=== PATIENT | female | born 1985 | race Caucasian/White ===

== ENCOUNTER → 2023-12-11 | Outpatient (CLI) | payer OTHER ==
--- NOTE | 2023-12-11 17:10 | CT ---
EXAMINATION TYPE: CT abdomen pelvis w con CT DLP: 1659 mGycm, Automated exposure control for dose reduction was used. DATE OF EXAM: 12/11/2023 4:13 PM COMPARISON: None CLINICAL INDICATION:Female, 38 years old with history of R31.1 MICROHEMATURIA; MICROHEMATURIA TECHNIQUE: Standard CT of the abdomen and pelvis following the administration of 100 cc of Isovue 3 00 IV contrast material and oral contrast. Coronal and sagittal reformats were performed. FINDINGS: LOWER CHEST: Linear scarring and/or atelectasis within the right middle lobe and left lower lobe. Tra ce bilateral pleural effusions. ABDOMEN LIVER: Diffusely hypoattenuating parenchyma. GALLBLADDER AND BILE DUCTS: Unremarkable. PANCREAS: Unremarkable. SPLEEN: Unremarkable. ADRENAL GLANDS: Unremarkable. KIDNEYS AND URETERS: The kidneys enhance symmetrically. 1.1 x 0.5 cm calculus within the left renal p zina (series 3, image 33). No overt hydronephrosis. There is mild prominence of the left renal pelvi s with enhancement of the wall. Contrast is demonstrated within both collecting systems extending int o the proximal ureters. No hydroureter. Additional nonobstructive calculus within the lower pole of t he right kidney measuring up to 8 mm. No perinephric fat stranding identified. PELVIS BLADDER: Incompletely distended but grossly unremarkable. REPRODUCTIVE: Unremarkable. ABDOMEN & PELVIS STOMACH AND BOWEL: Stomach and duodenum are unremarkable. No focal bowel wall thickening or stranding inflammatory changes. The appendix is not identified. No inflammatory changes within the right lower quadrant. Enteric contrast reaches the hepatic flexure. No evidence of bowel obstruction. PERITONEUM: No evidence of pneumoperitoneum or free fluid. VASCULATURE: No evidence of aortic aneurysm. MUSCULOSKELETAL: No acute osseous abnormalities LYMPH NODES: No gross evidence for lymphadenopathy. SOFT TISSUE/ABDOMINAL WALL: Unremarkable IMPRESSION: 1. Left renal 1.1 x 0.9 cm calculus within the prominent renal pelvis with wall enhancement. This is likely related to chronic inflammation from the calculus. Additional nonobstructive right renal calc ulus. Consider urology consult. 2. Hepatic steatosis. 3. Trace bilateral pleural effusions.
== END | disposition home or self-care (01) ==
LOC: RADCTMAIN 14:14
PROVIDERS: ATTEND Family Medicine
DX: N20.0 Calculus of kidney (principal); K76.0 Fatty (change of) liver, not elsewhere classified; J90 Pleural effusion, not elsewhere classified; R31.9 Hematuria, unspecified
CPT/HCPCS: 74177; Q9967

== ENCOUNTER → 2024-04-21 | Outpatient (CLI) | payer OTHER ==
--- NOTE | 2024-04-23 22:41 | XR ---
EXAMINATION TYPE: XR KUB DATE OF EXAM: 04/21/2024 3:59 PM COMPARISON: 01/10/2024 CLINICAL INDICATION: Male, 39 years old with history of N20.0 CALCULUS OF KIDNEY, TECHNIQUE: XR KUB view(s) obtained. FINDINGS: There is a normal bowel gas pattern. Psoas margins are normal. No organomegaly. There is a 0.6 cm calcification along the posterior mid to lower right renal cortex. There may be a 0.5 cm calcification within the mid left ureter at the level of the L3 transverse pro cess. IMPRESSION: 1. Suspected right renal calcification. 2. Possible mid left ureteral stone [facility], , 04/23/2024 10:39 PM
--- NOTE | 2024-04-23 22:42 | US ---
EXAMINATION TYPE: US kidneys/renal and bladder DATE OF EXAM: 04/21/2024 COMPARISON: CT & XR 2023 CLINICAL INDICATION: Male, 39 years old with history of N20.0 CALCULUS OF KIDNEY; History of kidney s tones, patient had surgery to remove stones TECHNIQUE: Grayscale imaging of the bilateral kidneys and urinary bladder: FINDINGS: EXAM MEASUREMENTS: Right Kidney: 9.5 x 4.6 x 5.0 cm Left Kidney: 10.8 x 5.0 x 4.8 cm Right Kidney: wnl Left Kidney: mild hydronephrosis, 0.9cm stone inferior pole Bladder: wnl Bilateral Jets seen: yes IMPRESSION: 1. Mild left hydronephrosis. 2. Nonobstructing renal stone inferior pole left kidney [facility], , 04/23/2024 10:40 PM
== END | disposition home or self-care (01) ==
LOC: EDSEX → RADUSWWP 15:05
PROVIDERS: ATTEND Urology
DX: N13.2 Hydronephrosis with renal and ureteral calculous obstruction (principal); Z87.442 Personal history of urinary calculi
CPT/HCPCS: 74018; 76770

== ENCOUNTER 2024-04-28 09:02 | Day surgery (SDC) | payer OTHER ==
--- NOTE | 2024-04-27 09:50 | P.GSHP ---
History of Present Illness H&P Date: 04/27/24 Josue was found to have microhematuria, and a CT scan showed a 5 x 11 mm left renal pelvic calculus, as well as an 8 mm right lower pole renal calculus. Josue reported left flank pain, but denied dysuria and hematuria. Bilateral ureteroscopy with laser lithotripsy and stent placement was performed on January 10, 2024. Renal ultrasound performed earlier this month shows mild left hydronephrosis, and KUB x-ray reveals a 5 mm left proximal ureteral calculus. Options were reviewed, consisting of medical expulsion therapy, ureteroscopic removal of the calculus, and extracorporal shockwave lithotripsy (ESWL). Josue has elected to undergo the latter and comes for this reason. - Constitutional Constitutional: Denies chills, Denies fever - Gastrointestinal Gastrointestinal: Denies nausea, Denies vomiting - Genitourinary (Male) Genitourinary: Denies dysuria, Denies flank pain, Denies hematuria Past Medical History Past Medical History: GERD/Reflux, Hyperlipidemia, Thyroid Disorder Additional Past Medical History / Comment(s): Kidney stones in both kidneys. occasional acid reflux. Doesn't take meds for this. History of Any Multi-Drug Resistant Organisms: None Reported Past Surgical History: Breast Surgery, Uterine Ablation Additional Past Surgical History / Comment(s): Bi lat mastectomy. Uterine ablation-"So I wpould stop having periods." transgender surgery Past Anesthesia/Blood Transfusion Reactions: No Reported Reaction Past Psychological History: Anxiety, Bipolar, Depression, PTSD Smoking Status: Former smoker, Vaper Past Alcohol Use History: None Reported Additional Past Alcohol Use History / Comment(s): Smoked in his 20's 1 pack per week. Quit smoking cigerettes at age [age] years old. Vapes nicotine. Past Drug Use History: None Reported - Past Family History Mother Family Medical History: Cancer Additional Family Medical History / Comment(s): Maternal grandmother cancer ovaries. Medications and Allergies Home Medications Medication Instructions Recorded Confirmed Type ARIPiprazole [Abilify] 5 mg PO HS 01/08/24 01/10/24 History Atorvastatin [Lipitor] 40 mg PO QAM 01/08/24 04/25/24 History Cholecalciferol (Vitamin D3) 1 dose PO Q30D 01/08/24 04/25/24 History [Vitamin D3 (1250 Mcg = 50,000 Iu)] LORazepam [Ativan] 0.5 mg PO BID PRN 01/08/24 04/25/24 History Levothyroxine Sodium [Synthroid] 25 mcg PO QAM 01/08/24 04/25/24 History Sertraline HCl [Zoloft] 150 mg PO HS 01/08/24 04/25/24 History lamoTRIgine [LaMICtal] 150 mg PO HS 01/08/24 04/25/24 History traZODone HCL [Desyrel] 100 mg PO HS 01/08/24 04/25/24 History Allergies Allergy/AdvReac Type Severity Reaction Status Date / Time No Known Allergies Allergy Verified 04/25/24 11:14 Surgical - Exam - General well developed, well nourished, no distress - Respiratory normal respiratory effort - Psychiatric oriented to time, oriented to person, oriented to place, speech is normal, memory intact Results - Imaging Abdominal x-ray: report reviewed, image reviewed CT scan - abdomen: report reviewed, image reviewed Assessment and Plan (1) Calculus of ureter Status: Acute Code(s): N20.1 - CALCULUS OF URETER SNOMED Code(s): 41899918 Plan: Left ESWL, to be performed by Dr. Brandt. The procedure has been reviewed in detail, including risks which include anesthesia, treatment failure, injury to adjacent organs, incomplete fragmentation, and [address].
[~2024-04-28 09:02] MED LIST: HYDROmorphone 0.5 MG/0.5 ML SYRINGE IVP PRN; LIDOCAINE 1% (10MG/ML) FOR IV START INTRADERMA PRN; MIDAZOLAM 2 MG/2 ML VIAL IV PRN
--- NOTE | 2024-04-28 09:24 | XR ---
EXAMINATION TYPE: XR KUB DATE OF EXAM: 04/28/2024 9:11 AM COMPARISON: 12/11/2023 CLINICAL INDICATION: Male, 39 years old with history of kidney stones; [facility] TECHNIQUE: One radiographic view of the abdomen was obtained. FINDINGS/IMPRESSION: Multiple foci of high density is seen projecting over the kidneys left greater than right possibly re presenting kidney stones. Consider further evaluation with CT [facility], , 04/28/2024 9:22 AM
[2024-04-28] MEDS: IV FLUID CONTINUATION 1,000 ML IV ONE ×2 (09:46→12:11)
[2024-04-28 09:49] VITALS: TEMP 97
[2024-04-28] MEDS: LACTATED RINGERS 1,000 ML IV SCH (09:53)
[2024-04-28] MEDS: DEXAMETHASONE SOD PHOSPHATE 4 MG/ML 1 ML VIAL IV ONE (10:00)
[2024-04-28] MEDS: ONDANSETRON 4 MG/2 ML VIAL IVP ONE (10:01)
[2024-04-28] MEDS ORDERED: PROPOFOL 10 MG/ML 20 ML VIAL IV ONE (10:16)
[2024-04-28] MEDS ORDERED: LIDOCAINE 1% INJ 10MG/ML (20 ML MDV) ONE (10:16)
[2024-04-28] MEDS ORDERED: MIDAZOLAM 2 MG/2 ML VIAL ONE (10:16)
[2024-04-28] MEDS ORDERED: GLYCOPYRROLATE 0.2 MG/ML 2 ML VIAL ONE (10:16)
[2024-04-28] MEDS ORDERED: KETAMINE HCL IN 0.9 % NACL 50 MG/5 ML SYRINGE ONE (10:16)
[2024-04-28] MEDS ORDERED: fentaNYL (PF) 50 MCG/ML 2 ML AMP ONE (10:16)
--- NOTE | 2024-04-28 10:43 | P.OP ---
Date of Procedure: 04/28/24 Preoperative Diagnosis: left upj stone Postoperative Diagnosis: same Procedure(s) Performed: eswl 2500 shocks Anesthesia: MAC Surgeon: Lebron Brandt Pathology: none sent Condition: stable Disposition: PACU Indications for Procedure: 39 yo , sp left ureteroscopy with laser lith to a 15 mm upj stone. there is a 4-5 mm fragment at the upj Description of Procedure: patient brought to the operating suite. Given IV sedation on the lithotripsy table. The stone is seen in 2 views of fluoroscopy. 2500 shocks accelerating energy and rate with the [employer] pizoelectric lithotripter are administered. The stone appears to fracture. The patient is awakened and returned recovery in good condition . the patient is discharged home upon recovery.
[2024-04-28 11:27] VITALS: BP 120/82; PULSE 86; RESP 17
== END 2024-04-28 12:39 | disposition home or self-care (01) ==
LOC: EDSEX 09:02 → ORWHC2ENDO 09:02
PROVIDERS: ATTEND Urology
DX: N13.2 Hydronephrosis with renal and ureteral calculous obstruction (principal); K21.9 Gastro-esophageal reflux disease without esophagitis; E78.5 Hyperlipidemia, unspecified; F41.9 Anxiety disorder, unspecified; E03.9 Hypothyroidism, unspecified; F31.9 Bipolar disorder, unspecified; Z87.891 Personal history of nicotine dependence; Z79.890 Hormone replacement therapy; Z79.02 Long term (current) use of antithrombotics/antiplatelets; Z79.899 Other long term (current) drug therapy
CPT/HCPCS: 74018; 50590; J2250; J1100; J2405; J2003; J3010; J2704; J1596

== ENCOUNTER → 2024-05-05 | Outpatient (CLI) | payer OTHER ==
--- NOTE | 2024-05-05 13:59 | XR ---
EXAMINATION TYPE: XR KUB DATE OF EXAM: 05/05/2024 COMPARISON: KUB radiograph 04/28/2024, 04/21/2024, 01/10/2024, renal ultrasound 04/21/2024, CT abdomen pelvis 12/11/2023 HISTORY: N20.1 calculus of ureter TECHNIQUE: Single supine KUB image of the abdomen is obtained FINDINGS: Small bowel demonstrates no evidence for dilatation or air fluid levels. Gas and fecal material is seen in non-distended colon. No convincing evidence for pneumoperitoneum. Stable pelvic phleboliths. No definitive renal or ureteral calculi identified however there is overly ing bowel gas and stool limiting evaluation. The lung bases are clear. The osseous structures are intact. IMPRESSION: No definitive renal or ureteral calculi identified however there is overlying bowel gas and stool helton iting evaluation. [facility], , 05/05/2024 1:57 PM
== END | disposition home or self-care (01) ==
LOC: RADXRMAIN 13:40
PROVIDERS: ATTEND Urology
DX: N20.1 Calculus of ureter (principal)
CPT/HCPCS: 74018

== ENCOUNTER → 2024-07-30 | Outpatient (CLI) | payer OTHER ==
--- NOTE | 2024-08-03 09:49 | CT ---
EXAMINATION TYPE: CT abdomen pelvis wo con DATE OF EXAM: 07/30/2024 4:24 PM COMPARISON: None. CLINICAL INDICATION: Male, 39 years old with history of N20.0 KIDNEY STONE N13.2 HYDRONEPHROSIS W STO NE, Left flank pain TECHNIQUE: Axial images were obtained from above the diaphragm to the pubic rami in the axial plane a t 5 mm thick sections. Reconstructed images are reviewed on the computer in the coronal plane. CONTRAST: mL of . Study performed without Oral Contrast DLP: 981 mGycm, Automated exposure control for dose reduction was used. FINDINGS: Limited CT sections are obtained the lung bases. The lung bases are clear. CT ABDOMEN: Liver: Normal Spleen: Normal Pancreas: Normal Adrenal glands: The adrenal glands are normal. Gallbladder: Normal Kidneys: Bilateral renal stones are present. The largest at the inferior pole Left kidney measures 0. 8 cm. Inferior pole right kidney is measures 0.3 cm. There is a moderate left hydronephrosis and hydr oureter. Hydroureter extends to the pelvic junction or proximal ureter. Nonobstructing 0.4 cm calcifi cation is present. Distal ureter appears normal. No cysts are present. No masses are evident Aorta: Normal Inferior vena cava: Normal. CT PELVIS: Periumbilical hernia is present. There may be some increased density. Correlate for. Umbil ical pain Loops of bowel within the abdomen and pelvis are normal. The study is without oral contrast limit ing bowel evaluation. Appendix: Normal as visualized. Urinary bladder: Normal. Genitourinary structures: Uterus and adnexa appear normal. Osseous structures: No suspicious lytic or sclerotic lesions. IMPRESSION: 1. 0.4 cm obstructing left ureteral pelvic junction stone with moderate left hydronephrosis. 2. Nonobstructing bilateral renal stones [facility], , 08/03/2024 9:47 AM
== END | disposition home or self-care (01) ==
LOC: RADCTMAIN 15:26
PROVIDERS: ATTEND Urology
DX: N13.2 Hydronephrosis with renal and ureteral calculous obstruction (principal)
CPT/HCPCS: 74176

== ENCOUNTER 2024-08-21 08:19 | Day surgery (SDC) | payer OTHER ==
--- NOTE | 2024-08-20 22:13 | P.GSHP ---
History of Present Illness H&P Date: 08/20/24 Chief Complaint: Left flank pain Josue was found in 2023 to have microhematuria, and he has no prior history of urolithiasis. CT scan showed a 5 x 11 mm left renal pelvic calculus, as well as an 8 mm right lower pole renal calculus. Josue underwent bilateral ureteroscopy with laser lithotripsy in January 2024. The calculi were of calcium composition. Josue was found to have a persistent left mid ureteral calculus in April 2024 and underwent ESWL, which was unsuccessful. Josue reports mild left flank discomfort. Recent CT scan shows moderate left hydronephrosis due to a 4 mm UPJ calculus as well as an 8 mm left renal calculus, and in view of this ureteroscopic removal of these calculi has been scheduled. - Constitutional Constitutional: Denies chills, Denies fever Past Medical History Past Medical History: GERD/Reflux, Hyperlipidemia, Thyroid Disorder Additional Past Medical History / Comment(s): Kidney stones in both kidneys. occasional acid reflux. Doesn't take meds for this. History of Any Multi-Drug Resistant Organisms: None Reported Past Surgical History: Breast Surgery, Uterine Ablation Additional Past Surgical History / Comment(s): Bi lat mastectomy. Uterine ablation-"So I wpould stop having periods." transgender surgery, kidney stone Past Anesthesia/Blood Transfusion Reactions: No Reported Reaction Smoking Status: Former smoker, Vaper - Past Family History Mother Family Medical History: Cancer Additional Family Medical History / Comment(s): Maternal grandmother cancer ovaries. Medications and Allergies Home Medications Medication Instructions Recorded Confirmed Type ARIPiprazole [Abilify] 5 mg PO HS 01/08/24 08/19/24 History Atorvastatin [Lipitor] 40 mg PO QAM 01/08/24 08/19/24 History Cholecalciferol (Vitamin D3) 1 dose PO Q30D 01/08/24 08/19/24 History [Vitamin D3 (1250 Mcg = 50,000 Iu)] LORazepam [Ativan] 0.5 mg PO BID PRN 01/08/24 08/19/24 History Levothyroxine Sodium [Synthroid] 25 mcg PO QAM 01/08/24 08/19/24 History Sertraline HCl [Zoloft] 150 mg PO HS 01/08/24 08/19/24 History lamoTRIgine [LaMICtal] 150 mg PO HS 01/08/24 08/19/24 History traZODone HCL [Desyrel] 100 mg PO HS 01/08/24 08/19/24 History Allergies Allergy/AdvReac Type Severity Reaction Status Date / Time No Known Allergies Allergy Verified 08/19/24 15:16 Surgical - Exam - General well developed, well nourished, no distress - Respiratory normal respiratory effort - Psychiatric oriented to time, oriented to person, oriented to place, speech is normal, memory intact Results - Imaging CT scan - abdomen: report reviewed, image reviewed Assessment and Plan (1) Calculus of ureter Status: Acute Code(s): N20.1 - CALCULUS OF URETER SNOMED Code(s): 04865263 (2) Calculus of kidney Status: Acute Code(s): N20.0 - CALCULUS OF KIDNEY SNOMED Code(s): 15496727 Plan: Cystoscopy, left retrograde pyelogram, left ureteroscopy with holmium laser lithotripsy and stone basketing, left ureteral stent insertion. Risks include anesthesia, bleeding, infection, ureteral injury, and inability to remove the calculi in their entirety.
[2024-08-21] MEDS ORDERED: fentaNYL (PF) 50 MCG/ML 2 ML AMP IVP PRN (08:53)
[2024-08-21] MEDS ORDERED: LIDOCAINE 1% (10MG/ML) FOR IV START INTRADERMA PRN (08:53)
[2024-08-21] MEDS ORDERED: MIDAZOLAM 2 MG/2 ML VIAL IV PRN (08:53)
[2024-08-21] MEDS ORDERED: HYDROmorphone 0.5 MG/0.5 ML SYRINGE IVP PRN (08:53)
--- NOTE | 2024-08-21 08:59 | XR ---
EXAMINATION TYPE: XR KUB DATE OF EXAM: 08/21/2024 8:51 AM CLINICAL INDICATION: Male, 39 years old with history of calculus, pain TECHNIQUE: 2 supine views of the abdomen. COMPARISON: Prior CT July 30, 2024. FINDINGS: Small bilateral renal calculi on CT less well seen on plain films. Some limitations due to overlying colonic fecal debris. Overall nonobstructive bowel gas pattern. Osseous structures are intact. IMPRESSION: As above. [facility], , 08/21/2024 8:56 AM
[2024-08-21] MEDS: DEXAMETHASONE SOD PHOSPHATE 4 MG/ML 1 ML VIAL IV ONE (09:31)
[2024-08-21] MEDS: LACTATED RINGERS 1,000 ML IV SCH (09:31)
[2024-08-21] MEDS: ONDANSETRON 4 MG/2 ML VIAL IVP ONE (09:31)
[2024-08-21] MEDS: IV FLUID CONTINUATION 1,000 ML IV ONE (09:34)
[2024-08-21] MEDS ORDERED: LIDOCAINE 1% INJ 10MG/ML (20 ML MDV) ONE (10:05)
[2024-08-21] MEDS ORDERED: PROPOFOL 10 MG/ML 20 ML VIAL IV ONE (10:05)
[2024-08-21] MEDS ORDERED: PHENYLEPHRINE-0.9% NACL SYG 1,000 MCG/10 ML SYRINGE ONE (10:05)
[2024-08-21] MEDS ORDERED: KETOROLAC 15 MG/ML 1 ML VIAL ONE (10:05)
[2024-08-21] MEDS ORDERED: GLYCOPYRROLATE 0.2 MG/ML 2 ML VIAL ONE (10:05)
[2024-08-21] MEDS ORDERED: MIDAZOLAM 2 MG/2 ML VIAL ONE (10:05)
[2024-08-21] MEDS ORDERED: SUCCINYLCHOLINE CHLORIDE 200 MG/10 ML VIAL IV ONE (10:05)
[2024-08-21] MEDS ORDERED: NEOSTIGMINE 1 MG/ML 10 ML VIAL ONE (10:05)
[2024-08-21] MEDS ORDERED: ROCURONIUM 10 MG/ML (5 ML VIAL) IV ONE (10:05)
[2024-08-21] MEDS ORDERED: fentaNYL (PF) 50 MCG/ML 2 ML AMP ONE (10:05)
[2024-08-21] MEDS: IOPAMIDOL-370 100ML BTL MISCELLANE ONE (11:04)
--- NOTE | 2024-08-21 11:21 | P.OP ---
Date of Procedure: 08/21/24 Preoperative Diagnosis: Left ureteral calculus, left renal calculi Postoperative Diagnosis: Same Procedure(s) Performed: Cystoscopy, left retrograde pyelogram, left ureteroscopy with Holmium laser lithotripsy, left ureteral stent insertion Anesthesia: MAGUI Surgeon: Urbano Santos Estimated Blood Loss (ml): 5 IV fluids (ml): 400 Pathology: none sent Condition: stable Disposition: PACU Indications for Procedure: Josue was found in 2023 to have microhematuria, and he has no prior history of urolithiasis. CT scan showed a 5 x 11 mm left renal pelvic calculus, as well as an 8 mm right lower pole renal calculus. Josue underwent bilateral ureteroscopy with laser lithotripsy in January 2024. The calculi were of calcium composition. Josue was found to have a persistent left mid ureteral calculus in April 2024 and underwent ESWL, which was unsuccessful. Josue reports mild left flank discomfort. Recent CT scan shows moderate left hydronephrosis due to a 4 mm UPJ calculus as well as an 8 mm left renal calculus, and in view of this ureteroscopic removal of these calculi has been scheduled. Operative Findings: Impacted left proximal ureteral calculus, fragmented completely. Multiple left lower pole renal calculi. Description of Procedure: The patient was taken to the operating room and placed in the dorsolithotomy position, with legs supported in Edson stirrups. The external genitalia was prepped and draped sterilely. The 30 lens was used to introduce the 21-Cypriot Gomez cystoscopic sheath through the urethra and into the bladder under direct vision. The bladder was examined in its entirety. Both ureteral orifices were normal anatomic location and configuration, and clear urine effluxed from both. No tumors or foreign bodies were seen. Using a 10 Cypriot cone-tip catheter, a left retrograde pyelogram was performed in the standard fashion. An obstructing calculus was seen within the left proximal ureter. The ureter proximal to this was dilated. The ureter distal to it appeared normal. A 0.035 inch Glidewire was passed through the cystoscope. The left ureteral orifice was cannulated, and the Glidewire was advanced beyond the calculus and up to the renal pelvis. The cystoscope was removed, and an 11/13-Cypriot ureteral access catheter was passed over the wire, up to the proximal ureter but distal to the ureteral calculus. The Gomez boa flexible ureteroscope was then passed through the ureteral access catheter sheath, up to the stone, which appeared to be impacted. The 200 micron Holmium laser probe was passed through the ureteroscope, and lithotripsy was performed utilizing a dusting mode. Once this was completed, the ureter was inspected. Edema was noted where the calculus had been impacted. There was no evidence of ureteral trauma, and all calculus fragments passed distally through the ureteral access catheter sheath. The ureteroscope was then advanced under direct vision, up to the left renal pelvis. The calyces were dilated. The only calculi seen were within a lower pole calyx, measuring up to approximately 7 mm in size. Since the calculi were all within 1 calyx, they were treated utilizing a popcorning mode. This was continued until there were no residual calculus fragments exceeding 1 mm, and none seen on fluoroscopy. The ureteroscope was then slowly withdrawn. No calculi were seen within the ureter, and there was no evidence of ureteral trauma. The Glidewire was passed through the ureteral access catheter sheath and up to the left renal pelvis. The ureteral access sheath was removed, and the wire was backloaded into the cystoscope, which was passed into the bladder. A 24 cm, 4.8 Cypriot double-J ureteral stent was placed over the wire. Proper stent positioning was verified fluoroscopically and endoscopically. The bladder was emptied and the cystoscope removed. The patient tolerated the procedure well and was taken to the recovery room in stable condition. [facility] [place] Procedure Acuity: Elective Stone Size and Location: 4 mm, left proximal ureter. Multiple left lower pole renal calculi measuring up to 6-7 mm in size. Ureteral Dilation: No Ureteral Access Sheath Used: Yes Stone Sent for Analysis: No All Stones/Fragments Were Removed with a Basket: No Complications: No Preoperative Antibiotics Given: Yes Stent Placed: Yes If Stent Placed, Was String Left Attached: No If Stent Placed, When is it to be Removed: 2 weeks Discharge Medications: Toradol, tamsulosin, tolterodine
--- NOTE | 2024-08-21 11:29 | FL ---
EXAMINATION TYPE: FL urography retrograde DATE OF EXAM: 08/21/2024 CLINICAL INDICATION: Male, 39 years old with history of Cysto for left kidney stone, TECHNIQUE: Fluoroscopy. COMPARISON: Same-day abdominal x-ray. FINDINGS: Fluoroscopic guidance was provided during cystoscopy with stent insertion procedure perfor med by Dr. Santos. A total of 50 seconds of fluoroscopic time was utilized during the procedure and 5 spot images was acquired. Images acquired show placement of a ureter stent. TOTAL DAP = 0.75113 IMPRESSION: As Above. [facility], , 08/21/2024 11:27 AM
[2024-08-21 11:32] VITALS: TEMP 97.5
[2024-08-21] MEDS: MEPERIDINE 25 MG/ML SYRINGE IVP STA (11:44)
[2024-08-21 12:16] VITALS: RESP 18
[2024-08-21 12:40] VITALS: BP 112/78; PULSE 84
== END 2024-08-21 13:06 | disposition home or self-care (01) ==
LOC: OR 08:19
PROVIDERS: ATTEND Urology
DX: N20.2 Calculus of kidney with calculus of ureter (principal); K21.9 Gastro-esophageal reflux disease without esophagitis; E78.5 Hyperlipidemia, unspecified; E07.9 Disorder of thyroid, unspecified; F41.9 Anxiety disorder, unspecified; F31.30 Bipolar disorder, current episode depressed, mild or moderate severity, unspecified; Z87.891 Personal history of nicotine dependence; Z79.890 Hormone replacement therapy; Z79.02 Long term (current) use of antithrombotics/antiplatelets; Z79.899 Other long term (current) drug therapy
CPT/HCPCS: 74420; 74018; 52356; C2625; C1758; C1769; J2250; J0330; J1100; J2710; J0690; J2405; J2003; J3010; J1885; J2704; Q9967; J2371; J1596; J2175